=== PATIENT | female | born 1950 | race Caucasian/White ===

== ENCOUNTER 2018-05-23 08:03 | Outpatient (CLI) | payer MEDICARE, OTHER ==
[~2018-05-23] VITALS: Ht 170.2 cm; Wt 112.7 kg
--- NOTE | ~2018-05-23 | HEMODYNAMI ---
PATIENT:ESPINOZA RAMSEY MEDICAL RECORD: [id number] : 48 LOCATION:DLOS ADMISSION DATE: 05/23/18 Generatedon:05/23/201813:05 Patient name: ESPINOZA RAMSEY Patient #: [id number] SSN: : 1950 Date of study: 05/23/2018 Page: Of Hemodynamic Procedure Report Patient Data Patient Demographics Procedure consent was obtained First Name: ESPINOZA Gender: Female Last Name: BRAULIO : 1950 [facility] Initial: GREGORIO Age: 67 year(s) Patient #: [id number] Race: Unknown Additional ID: [id number] Contact details Address: [address] [place] [address] State: [place] City: [place] Zip code: [address] Past Medical History Allergies Allergen Reaction Date Comments Reported Other allergy 05/23/2018 ADHESIVE TAPE, LATEX, SULFA Admission Admission Data Admission Date: 05/23/2018 Admission Time: 8:03 Height (in.): 5.7 BSA: 0.37 (m2) Height (cm.): 14.48 BMI: 5366.61 (kg/m2) Weight (lbs.): 248 Weight (kg.): 112.49 Lab Results Lab Result Date: 05/23/2018 Lab Result Time: 0:00 Biochemistry Name Units Result Min Max BUN mg/dl 17 --(---*)-- 7 18 Creatinine mg/dl 0.9 --(-*--)-- 0.6 1.3 CBC Name Units Result Min Max Hemoglobin g/dl 13.8 --(*---)-- 13.5 17.5 Procedure Procedure Types Cath Procedure Diagnostic Procedure [facility] w/Coronaries PCI Procedure Coronary Stent Coronary Stent Initial Procedure Description Procedure Date Procedure Date: 05/23/2018 Procedure Start Time: 12:45 Procedure End Time: 13:04 Procedure Staff Name Function Marvin Layton MD Performing Physician Kandace Hodges RT Monitor Ashleigh Wilkins RT Scrub Jose Lorigan RN Nurse Procedure Data Cath Procedure Fluoroscopy Diagnostic fluoroscopy Total fluoroscopy Time: 6.1 time: 6.1 min min Diagnostic fluoroscopy Total fluoroscopy dose: 626 dose: 626 mGy mGy Contrast Material Contrast Material Type Amount (ml) Isovue 300 66 Entry Location Entry Primary Successful Side Size Upsize Upsize Entry Closure Bassett ccessful Closure Location (Fr) 1 (Fr) 2 (Fr) Remarks Device Remarks Radial Right 6 Fr Mechanical artery Short Compression Estimated blood loss: 10 ml Diagnostic catheters Device Type Used For End Catheter Placement DIAGNOSTIC [place] 110cm 5 LV Angiography Fr catheter ([id number]) DIAGNOSTIC [place] 110cm 5 Left Coronary Fr catheter ([id number]) Angiography DIAGNOSTIC [place] 110cm 5 Right Coronary Fr catheter ([id number]) Angiography Procedure Complications No complications Procedure Medications Medication Administration Route Dosage 0.9% NaCl I.V. 100 ml/hr Oxygen etCO2 Nasal cannula 2 l/min Heparin Flush Bag added to field 2 bags (1000units/500ml NS) Lidocaine 2% added to field 20 Radial Cocktail added to field 1 syringe (Verapomil 2mg/Nitro 400mcg/Heparin 1500units) Versed I.V. 2 mg Fentanyl I.V. 100 mcg Radial Cocktail I.A. 1 syringe (Verapomil 2mg/Nitro 400mcg/Heparin 1500units) Heparin Bolus I.V. 4000 units Hemodynamics Rest BSA: 0.37 (m2) HGB: 13.8 (g/dl) O2 Consumption: Estimated: 33.98 (ml/min) O2 Con sumption indexed: Estimated:91.84 (ml/min/m) Heart Rate: 68 (bpm) Snapshots Pre Cath Intra NCS Post Cath Vital Signs Time Heart Resp SPO2 etCO2 NIBP (mmHg) Rhythm Pain Sedation Rate (ipm) (%) (mmHg) Status Level (bpm) 12:32:14 69 27 96 0 158/101(124) A-Fib 0 (11) 10(A) , No pain 12:37:05 62 14 96 0 134/87(111) A-Fib 0 (11) 10(A) , No pain 12:41:54 62 12 94 19.5 136/87(119) A-Fib 0 (11) 10(A) , No pain 12:47:28 72 26 97 17.9 135/85(125) A-Fib 0 (11) 10(A) , No pain 12:52:21 67 11 94 20.2 143/68(106) A-Fib 0 (11) 10(A) , No pain 12:57:09 66 13 94 27.7 145/77(132) A-Fib 0 (11) 9(A) , No pain 13:01:56 80 14 95 35.9 139/95(115) A-Fib 0 (11) 9(A) , No pain Medications Time Medication Route Dose Verified Delivered Reason Not es Effectiveness by by 12:35:05 0.9% NaCl I.V. 100 Jose Jose Per physician ml/hr Deon Chavarria RN RN 12:35:16 Oxygen etCO2 2 l/min Jose Jose Per physician Nasal Deon Chavarria cannula RN RN 12:35:28 Heparin Flush added 2 bags Jose Jose used for Bag to Deon Chavarria procedure (1000units/500ml field ABURTO RN NS) 12:35:42 Lidocaine 2% added 20ml Jose Jose for local to vial Deon Chavarria anesthetic field ABURTO RN 12:36:01 Radial Cocktail added 1 Jose Jose used for (Verapomil to syringe Lorigan Malloryigan procedure 2mg/Nitro field ABURTO RN 400mcg/Heparin 1500units) 12:45:26 Versed I.V. 2 mg Jose Jose for sedation Deon Chavarria RN RN 12:45:34 Fentanyl I.V. 100 mcg Jose Jose for sedation Deon Chavarria RN RN 12:47:28 Radial Cocktail I.A. 1 Jose Marvin for (Verapomil syringe Deon Layton MD vasodilation 2mg/Nitro RN 400mcg/Heparin 1500units) 12:54:52 Heparin Bolus I.V. 4000 Jose Jose for units Deon Chavarria anticoagulation RN cell operation supervisor Log Time Note 12:09:21 Signed procedure consent form obtained from patient. 12:09:40 H&P Date Dictated: 05/19/2018 Within 30 days and on chart., H&P Addendum completed by physician on day of procedure. (MUST COMPLETE FOR ALL OUTPATIENTS). 12:09:57 Patient allergic to Other allergyADHESIVE TAPE, LATEX, SULFA 12:11:41 Lab Result : BUN 17 mg/dl 12:11:41 Lab Result : Creatinine 0.9 mg/dl 12:11:41 Lab Result : Hemoglobin 13.8 g/dl 12:11:56 Patient Height : 5.7 inches 12:12:01 Patient Weight : 248 lbs 12:16:03 Time tracking: Regular hours (M-F 7:00 - 5:00) 12:16:10 Plan of Care:Hemodynamics will remain stable., Cardiac rhythm will remain stable., Comfort level will be maintained., Respiratory function will remain adequate., Patient/ family verbilizes understanding of procedure., Procedure tolerated without complication., Recovers from procedure without complications.. 12:16:31 Jose Chavarria RN sent for patient. Start room use. 12:31:03 Patient received from Pre/Post Procedure Room to CCL 1 Alert and oriented. Tansferred to table in Supine position. 12:31:04 Warm blankets applied, and kathleen hugger turned on for patient comfort. 12:31:05 Correct patient and procedure confirmed by team. 12:31:05 ECG and BP/O2 sat monitors applied to patient. 12:31:07 Pre-procedure instructions explained to patient. 12:31:07 Pre-op teaching completed and patient verbalized understanding. 12:31:10 Vital chart was started 12:31:14 Baseline sample Acquired. 12:31:21 Full Disclosure recording started 12:31:24 Family in waiting room. 12:31:29 Is the patient allergic to Iodine/contrast media? No. 12:31:34 Is patient on blood thinner?Yes 12:31:37 ACC The patient was administered the following blood thiners within the last 24 hours: ACCPlavix 12:32:00 Rhythm: atrial fibrillation 12:32:03 Patient diabetic? No. 12:32:15 Previous problem with sedation/anesthesia? No ? 12:32:16 Snore? Yes 12:32:17 Sleep apnea? No 12:32:18 Deviated septum? No 12:32:19 Opens mouth fully? Yes 12:32:20 Sticks out tongue? Yes 12:32:21 Airway obstruction? No ? 12:32:23 Dentures? No ? 12:32:28 Modified Humble's test Ulnar < 7 seconds 12:32:29 Patient pain scale 0/10 ?. 12:32:38 IV patent on arrival in left forearm with 0.9% NaCl at [facility]. 12:32:40 Lab results completed and on chart. 12:32:43 Right Radial & Right Groin area was prepped with chlora-prep and draped in sterile fashion 12:32:44 Alarms reviewed by R. N. 12:32:44 Sharps counted by scrub and verified by R.N. 12:32:46 Use device set Radial Dx or PCI 12:34:15 ACIST Syringe (34592) opened to sterile field. 12:34:16 Medline Cath Pack ([id number]) opened to sterile field. 12:34:16 Bag Decanter (2002S) opened to sterile field. 12:34:17 DIAGNOSTIC WIRE .035 260cm J wire (020901) opened to sterile field. 12:34:18 ACIST Hand Control (48530) opened to sterile field. 12:34:19 ACIST Manifold (22403) opened to sterile field. 12:34:19 Tegaderm 4 x 4 (1626W) opened to sterile field. 12:34:20 MBrace Wrist Support ([id number]) opened to sterile field. 12:34:22 SHEATH 6Fr Prelude Radial ([id number]) opened to sterile field. 12:35:05 0.9% NaCl 100 ml/hr I.V. was administered by Jose Chavarria RN; Per physician; 12:35:16 Oxygen 2 l/min etCO2 Nasal cannula was administered by Jose Chavarria RN; Per physician; 12:35:28 Heparin Flush Bag (1000units/500ml NS) 2 bags added to field was administered by Jose Chavarria RN; used for procedure; 12:35:42 Lidocaine 2% 20ml vial added to field was administered by Jose Chavarria RN; for local anesthetic; 12:36:01 Radial Cocktail (Verapomil 2mg/Nitro 400mcg/Heparin 1500units) 1 syringe added to field was administered by Jose Chavarria RN; used for procedure; 12:37:35 Zero performed for pressure channel P1 12:43:44 Final Timeout: patient, procedure, and site verified with staff and physician. All members of the team are in agreement. 12:43:47 Right Radial site verified by team. 12:43:50 Physical assessment completed. ASA score P 2 - A patient with mild systemic disease as per Marvin Layton MD. 12:43:53 Sedation plan: IV Moderate Sedation Medication:Versed, Fentanyl 12:45:26 Versed 2 mg I.V. was administered by Jose Chavarria RN; for sedation; 12:45:34 Fentanyl 100 mcg I.V. was administered by Jose Chavarria RN; for sedation; 12:45:44 Procedure started. 12:45:53 Local anesthetic to right radial artery with Lidocaine 2% by Marvin Layton MD.INITIAL ACCESS ONLY 12:46:29 A 6 Fr Short sheath was inserted into the Right Radial artery 12:47:25 A DIAGNOSTIC [place] 110cm 5 Fr catheter ([id number]) was advanced over the wire and used for LV Angiography. 12:47:28 Radial Cocktail (Verapomil 2mg/Nitro 400mcg/Heparin 1500units) 1 syringe I.A. was administered by Marvin Layton MD; for vasodilation; 12:48:12 GLIDE WIRE ANGLE 260cm (CG9118) opened to sterile field. 12:49:32 LV gram done using TANG 12:49:36 Injector settings: Ml/sec: 5, Volume: 15, 12:49:49 EF : 60 % 12:49:50 Catheter removed. 12:50:06 A DIAGNOSTIC [place] 110cm 5 Fr catheter (192111) was advanced over the wire and used for Left Coronary Angiography. 12:51:26 A DIAGNOSTIC [place] 110cm 5 Fr catheter ([id number]) was advanced over the wire and used for Right Coronary Angiography. 12:51:29 Catheter removed. 12:51:33 Use device set TAU PCI 12:51:35 INFLATOR Merit BasixCompak (FM5500) opened to sterile field. 12:51:38 CHOICE PT Extra Support 182cm wire ([id number]) opened to sterile field. 12:53:14 6 Fr EBU 3.0 guide catheter was inserted over the wire 12:53:27 GUIDE 6FR EBU 3.0 catheter ([id number]) opened to sterile field. 12:54:52 Heparin Bolus 4000 units I.V. was administered by Jose Chavarria RN; for anticoagulation; 12:55:26 Guide Catheter removed. unable to cannulate vessel. 12:55:40 GUIDE 6FR EBU 3.5 catheter ([id number]) opened to sterile field. 12:55:56 6 Fr EBU 3.5 guide catheter was inserted over the wire 12:57:08 CHOICE PT ES wire advanced. 12:58:42 Place stent Inflation Number: 1 A JUANA RX 3.5 x 15 stent ([id number]) was prepped and advanced across the Mid LAD. The stent was deployed at 13 ARSENIO for 0:08 (min:sec). 12:59:05 Stent catheter was removed intact over wire. 12:59:06 Wire removed. 12:59:06 Guide catheter removed. 12:59:14 Sheath removed intact; hemostasis achieved with Mechanical Compression to the Right Radial artery. 12:59:18 Procedure ended.(Physican Out) 12:59:52 Fluoroscopy time 06.10 minutes. 12:59:55 Fluoroscopy dose: 626 mGy 12:59:55 Flurop Dose total: 626 12:59:59 Contrast amount:Isovue 300 66ml. 13:00:00 Sharps counted by scrub and verified by R.N. 13:00:03 TR band inflated with 12cc of air. 13:00:04 Insertion/operative site no bleeding no hematoma. 13:00:10 Post right radial artery:stable, clean and dry 13:00:11 Post Procedure Pulses reassessed and unchanged 13:00:14 Post-procedure physical assessment completed. ASA score P 2 - A patient with mild systemic disease as per Marvin Layton MD. 13:00:16 Post procedure rhythm: unchanged. 13:00:20 Estimated blood loss: 10 ml 13:00:33 Post procedure instruction explained to patient.Patient verbalizes understanding. 13:00:34 Patient needs reinforcement of post procedure teaching. 13:01:11 Procedure Complication : No complications 13:01:13 See physician's report for complete and final results. 13:01:30 TR BAND Standard ([id number]) opened to sterile field. 13:01:53 Procedure type changed to Cath procedure, Diagnostic procedure, LHC, LHC w/Coronaries, PCI procedure, Coronary Stent, Coronary Stent Initial 13:02:50 Procedure and supply charges have been captured, reviewed, submitted and are correct. 13:03:52 Vital chart was stopped 13:03:53 Report given to Pre/Post Procedure Room. 13:04:01 Patient transfered to Pre/Post Procedure Room with Stretcher. 13:04:09 Procedure ended. 13:04:09 Full Disclosure recording stopped 13:04:13 End room use (Document Last) Intervention Summary Intervention Notes Time ActionType Lesion and Equipment Used Action# Pressure Duration Attributes 12:58:42 Place stent Mid LAD JUANA RX 3.5 x 1 13 00:08 15 stent ([id number]) Device Usage Item Name Manufacture Quantity Catalog Number Hospital Part Current Minimal Lot# / Charge Number Stock Stock Serial# Code ACIST Syringe Acist 1 [id number] [id number] [id number] 20 (44014) Medical Systems Inc Medline Cath Cardinal 1 [id number] 473967 00997 148436 5 Pack Health ([id number]) Bag Decanter Microtek 1 2001S 309030 85192 715967 5 (2001S) Medical Inc. DIAGNOSTIC WIRE St [place] 1 455443 855676 378741 407579 30 .035 260cm J wire (847966) ACIST Hand Acist 1 15117 529346 247794 542410 5 Control (10173) Medical Systems Inc ACIST Manifold Acist 1 63597 003063 793054 340992 5 (94338) Medical Systems Inc Tegaderm 4 x 4 3M 1 1626W 708843 925423 146610 5 (1626W) MBrace Wrist Advanced 1 140-0250-00 724457 43478 838013 5 Support Vascular ([id number]) Dynamics SHEATH 6Fr Merit 1 [id number] 743008 280095 130254 5 Prelude Radial Medical ([id number]) DIAGNOSTIC Terumo 1 40-9793 254904 333179 986897 5 [place] 110cm 5 Fr catheter (255954) GLIDE WIRE Terumo 1 OA5009 437148 758526 864490 5 ANGLE 260cm (LM8955) INFLATOR Merit Merit 1 VU8029 958780 157894 234687 15 [employer] JapanmnGroupCharger (LT0163) CHOICE PT Extra [place] 1 [id number] 070226 767998 113461 5 Support 182cm Scientific wire ([id number]) GUIDE 6FR EBU Medtronic 1 [id number] 196845 35030 934347 0 3.0 catheter ([id number]) GUIDE 6FR EBU Medtronic 1 AD2RNS68 031435 21855 849887 3 3.5 catheter (AI5TSE19) JUANA RX 3.5 x Medtronic 1 [id number] 011021 0302971 927272 5 [id number] 15 stent ([id number]) TR BAND Terumo 1 [id number] 733894 768375 302122 40 Standard ([id number]) Signature Audit Cisco Stage Time Signature Unsigned Intra-Procedure 05/23/2018 Kandace 1:05:37 PM Counts RT(R) Signatures Monitor : Kandace Signature : Counts RT Date : Time : [address] [address]
--- NOTE | ~2018-05-23 | OP ---
PATIENT NAME: ESPINOZA RAMSEY MEDICAL RECORD: [id number] :[birth year] LOCATION:D.CAT ADMISSION DATE: SURGEON: STACIE NEVAREZ MD DATE OF OPERATION: 05/23/2018 PROCEDURES: 1. PTCA stent LAD. 2. Left heart catheterization. 3. Selective coronary angiography. 4. Left ventriculogram. INDICATION: Angina and coronary artery disease. PROCEDURE IN DETAIL: After informed consent was obtained and after a detailed description of the risks, benefits as well as alternative therapies, the patient elected to proceed with angiogram and angioplasty. The right radial area was prepped and draped in normal sterile fashion. Right radial artery was cannulated via modified Seldinger technique with placement of 6-Martiniquais sheath. All catheters exchanged through this sheath. FINDINGS: Left ventriculogram was performed in standard 30-degree TANG view, reveals good cardiac wall motion throughout all segments. Overall ejection fraction estimated 60%. SELECTIVE CORONARY ANGIOGRAPHY: 1. Left main is with no significant angiographic disease. 2. Left anterior descending has 85% stenosis in the proximal vessel. 3. Left circumflex has moderate irregularities, but now flow-limiting stenosis. 4. Right coronary artery has moderate irregularities, but no flow-limiting stenosis. PTCA STENT OF THE LAD: The stent used is a 3.5 x 15 mm [place]. Result was 0% residual stenosis. OVERALL IMPRESSION: Successful percutaneous transluminal coronary angioplasty stent of the left anterior descending going from 85% initial stenosis to 0% residual. TRANSINT:[id number] Voice Confirmation ID: [id number] DOCUMENT ID: [id number] STACIE NEVAREZ MD at 2001 CC: [id number] DICTATION DATE: 05/23/18 1304 RESIDENTIAL SERVICE TECHNICIAN: 05/23/18 1309 DEP CLI 05/23/18 [place] [address]
[2018-05-23] MEDS ORDERED: LEVOTHYROXINE75 MCG PO (09:02)
[2018-05-23] MEDS ORDERED: TOPROL XL50 MG PO (09:02)
[2018-05-23] MEDS ORDERED: HYZAAR 50-12.51 TAB PO (09:03)
[2018-05-23] MEDS ORDERED: PLAVIX75 MG PO (09:03)
[2018-05-23 09:11] VITALS: BP 173/103; Ht 170.2 cm; Wt 112.7 kg
[2018-05-23 09:19] LABS: BASOPHILS 0.8 % (0-2); EOSINOPHILS 2.8 % (0-7); HEMATOCRIT 41.1 % (36.0-48.0); HEMOGLOBIN 13.8 g/dL (12-16); IMMATURE GRANULOCYTES 0.1 % (0-5); LYMPHOCYTES 29.2 % (15-50); MCH 31.9 pg (26.0-34.0); MCHC 33.6 g/dL (31.0-37.0); MCV 94.9 fL (80.0-100.0); MONOCYTES 6.2 % (2-11); NEUTROPHILS 60.9 % (40-80); PLATELET COUNT 233 10x3/uL (130-400); RBC 4.33 10x6/uL (4.00-5.40); RDW 12.8 % (11.5-14.5); WBC 7.8 10x3/uL (4.8-10.8)
[2018-05-23 09:53] LABS: ANION GAP 11.6 mmol/L (8-16); CALCIUM 9.5 mg/dL (8.5-10.1); CARBON DIOXIDE 26.8 mmol/L (21.0-32.0); CREATININE - SERUM 0.9 mg/dL (0.6-1.3); POTASSIUM - SERUM 3.4 mmol/L (3.5-5.1)
[2018-07-18] MEDS ORDERED: BETAPACE 80 MG80 MG PO (10:18)
[2018-07-18] MEDS ORDERED: XARELTO20 MG PO (10:18)
== END 2018-05-23 16:55 | disposition home or self-care (01) ==
LOC: D.CATH 08:03
PROVIDERS: Internal Medicine Interventional Cardiology
DX: I20.9 Angina pectoris, unspecified (principal); R06.02 Shortness of breath; I48.91 Unspecified atrial fibrillation; I10 Essential (primary) hypertension; R94.31 Abnormal electrocardiogram [ECG] [EKG]; Z01.812 Encounter for preprocedural laboratory examination
CPT/HCPCS: 93458; C9600

== ENCOUNTER → 2018-07-18 09:48 | Outpatient (CLI) | payer MEDICARE, OTHER ==
[~2018-07-18] VITALS: Ht 170.2 cm; Wt 113.6 kg
--- NOTE | ~2018-07-18 | OP ---
PATIENT NAME: ESPINOZA RAMSEY MEDICAL RECORD: [id number] :[birth year] LOCATION:D.CAT ADMISSION DATE: SURGEON: STACIE NEVAREZ MD DATE OF OPERATION: 07/18/2018 PROCEDURE: DC cardioversion. INDICATION: Atrial fibrillation. PROCEDURE IN DETAIL: IV conscious sedation was performed per anesthesia. Continuous heart rate, O2 saturation, blood pressure monitoring all undertaken, all of which remained stable. She received 1 shock restoring sinus rhythm. OVERALL IMPRESSION: Successful DC cardioversion from atrial fibrillation to sinus rhythm. TRANSINT:[id number] Voice Confirmation ID: [id number] DOCUMENT ID: [id number] STACIE NEVAREZ MD at 1806 CC: [id number] DICTATION DATE: 07/18/18 1349 MUSIC EDUCATION ADJUNCT PROFESSOR: 07/18/18 1411 DEP CLI 07/18/18 [id number] [place] [address]
--- NOTE | ~2018-07-18 | HEMODYNAMI ---
PATIENT:ESPINOZA RAMSEY MEDICAL RECORD: [id number] : [birth year] LOCATION:D.CAT ADMISSION DATE: 07/18/18 Generatedon:07/18/201813:50 Patient name: ESPINOZA RAMSEY Patient #: [id number] SSN: : 1950 Date of study: 07/18/2018 Page: Of Hemodynamic Procedure Report Patient Data Patient Demographics Procedure consent was obtained First Name: ESPINOZA Gender: Female Last Name: BRAULIO : 1950 [facility] Initial: GREGORIO Age: 67 year(s) Patient #: [id number] Race: Unknown Additional ID: [id number] Contact details [address]: [address] [place], [place] [address] State: [place] City: [place] Zip code: [address] Past Medical History Allergies Allergen Reaction Date Comments Reported Other allergy 05/23/2018 ADHESIVE TAPE, LATEX, SULFA Admission Admission Data Admission Date: 07/18/2018 Admission Time: 9:48 Procedure Procedure Types Cath Procedure Diagnostic Procedure Cardioversion External Procedure Description Procedure Date Procedure Date: 07/18/2018 Procedure Start Time: 13:41 Procedure Staff Name Function Marvin Layton MD Performing Physician Kandace Hodges RT Monitor Mohsen Sherwood RN Nurse Polly Almanza RT Web Pressman Chung Montanez RT Web Pressman Reggie Mendoza MD Additional personnel Procedure Medications Medication Administration Route Dosage Oxygen etCO2 Nasal cannula 2 l/min 0.9% NaCl I.V. 100 ml/hr Refer to Anesthesia Notes for Sedation Medications Hemodynamics Rest Heart Rate: 65 (bpm) Snapshots Pre Cath Intra NCS Post Cath Vital Signs Time Heart Resp SPO2 etCO2 NIBP (mmHg) Rhythm Pain Sedation Rate (ipm) (%) (mmHg) Status Level (bpm) 13:29:19 61 18 99 0 179/107(139) NSR 0 (11) 10(A) , No pain 13:33:54 55 14 99 0 166/104(139) NSR 0 (11) 10(A) , No pain 13:38:33 56 9 98 32.2 173/84(127) NSR 0 (11) 10(A) , No pain 13:43:07 69 10 100 20.2 149/81(100) NSR 0 (11) 10(A) , No pain 13:47:29 51 15 97 34.4 128/82(106) NSR 0 (11) 10(A) , No pain Medications Time Medication Route Dose Verified Delivered Reason Notes Effective ness by by 13:42:10 Oxygen etCO2 2 Marvin Connolly Per Nasal l/min Calin Sherwood RN physician cannula 13:42:31 0.9% NaCl I.V. 100 Marvin Connolly Per ml/hr Calin Sherwood RN physician 13:50:22 Refer to Marvin Connolly Per Anesthesia Calin Sherwood RN physician Notes for Sedation Medications Procedure Log Time Note 13:16:33 Time tracking: Regular hours (M-F 7:00 - 5:00) 13:16:37 Plan of Care:Hemodynamics will remain stable., Cardiac rhythm will remain stable., Comfort level will be maintained., Respiratory function will remain adequate., Patient/ family verbilizes understanding of procedure., Procedure tolerated without complication., Recovers from procedure without complications.. 13:16:51 Chung Montanez RT(R) sent for patient. Start room use. 13:21:36 Patient received from Pre/Post Procedure Room to CCL 3 Alert and oriented. Tansferred to table in Supine position. 13:21:37 Warm blankets applied, and kathleen hugger turned on for patient comfort. 13:21:37 Correct patient and procedure confirmed by team. 13:21:41 Signed procedure consent form obtained from patient. 13:21:41 ECG and BP/O2 sat monitors applied to patient. 13:21:42 Full Disclosure recording started 13:22:31 CALLED ANESTHESIA 13:22:46 H&P Date Dictated: 07/15/2018 Within 30 days and on chart., H&P Addendum completed by physician on day of procedure. (MUST COMPLETE FOR ALL OUTPATIENTS). 13:22:48 Pre-procedure instructions explained to patient. 13:22:48 Pre-op teaching completed and patient verbalized understanding. 13:22:52 Family in patients room. 13:22:53 Patient NPO since Midnight. 13:23:12 Is the patient allergic to Iodine/contrast media? No. 13:23:48 Is patient on blood thinner?Yes 13:23:50 ACC The patient was administered the following blood thiners within the last 24 hours: Xarelto 13:23:53 Patient diabetic? No. 13:24:22 Previous problem with sedation/anesthesia? No ? 13:24:26 Snore? Yes 13:24:27 Sleep apnea? No 13:24:29 Deviated septum? No 13:24:30 Opens mouth fully? Yes 13:24:31 Sticks out tongue? Yes 13:24:32 Airway obstruction? No ? 13:24:35 Dentures? No ? 13:24:39 Patient pain scale 0/10 ?. 13:24:46 IV patent on arrival in left forearm with 0.9% NaCl at [facility]. 13:24:49 Lab results completed and on chart. 13:25:12 Alarms reviewed by Elton Saab 13:25:22 Quick Combo opened to sterile field. 13:25:26 Quick combo pads placed on patients chest and back. 13:27:32 Baseline sample Acquired. 13:27:46 Rhythm: atrial fibrillation 13:27:49 Vital chart was started 13:28:28 Reggie Mendoza MD present and monitoring patient for TIVA. 13:39:56 Final Timeout: patient, procedure, and site verified with staff and physician. All members of the team are in agreement. 13:40:07 Sedation plan: TIVA Medication:Propofol 13:40:11 Physical assessment completed. ASA score P 2 - A patient with mild systemic disease as per Marvin Layton MD. 13:41:01 Procedure started. 13:42:10 Oxygen 2 l/min etCO2 Nasal cannula was administered by Mohsen Sherwood RN; Per physician; 13:42:31 0.9% NaCl 100 ml/hr I.V. was administered by Mohsen Sherwood RN; Per physician; 13:43:03 Defibrillator synced and charged to 275 Joules. 13:43:15 Shock delivered. 13:43:34 Patient cardioverted to sinus rhythm . 13:43:37 Procedure ended.(Physican Out) 13:45:00 Post procedure rhythm: sinus rhythm 13:45:02 Post procedure instruction explained to patient.Patient verbalizes understanding. 13:45:02 Patient needs reinforcement of post procedure teaching. 13:45:16 Procedure and supply charges have been captured, reviewed, submitted and are correct. 13:45:19 See physician's report for complete and final results. 13:50:09 Vital chart was stopped 13:50:10 Report given to Pre/Post Procedure Room. 13:50:13 Patient transfered to Pre/Post Procedure Room with Stretcher. 13:50:16 End room use (Document Last) 13:50:22 Refer to Anesthesia Notes for Sedation Medications was administered by Mohsen Sherwood RN; Per physician; Device Usage Item Manufacture Quantity Catalog Hospital Part Current Minimal Lot# / Name Number Charge Number Stock Stock Sin al# Code [employer]. 1 [id number] 5 Combo Signature Audit [place] Stage Time Signature Unsigned Intra-Procedure 07/18/2018 Kandace 1:50:36 PM Counts RT(R) Signatures Monitor : Kandace Signature : Counts RT Date : Time : [address] [place] [address]
[~2018-07-18 09:48] MED LIST: BETAPACE 80 MG80 MG PO; HYZAAR 50-12.51 TAB PO; LEVOTHYROXINE75 MCG PO; PLAVIX75 MG PO; TOPROL XL50 MG PO; XARELTO20 MG PO
[2018-07-18 10:29] VITALS: BP 132/80; Ht 170.2 cm; Wt 113.6 kg
[2018-07-18 10:55] LABS: BASOPHILS 0.4 % (0-2); EOSINOPHILS 2.5 % (0-7); HEMATOCRIT 40.1 % (36.0-48.0); HEMOGLOBIN 13.6 g/dL (12-16); IMMATURE GRANULOCYTES 0.3 % (0-5); LYMPHOCYTES 25.4 % (15-50); MCH 31.9 pg (26.0-34.0); MCHC 33.9 g/dL (31.0-37.0); MCV 93.9 fL (80.0-100.0); MEAN PLATELET VOLUME 9.8 fL (7.4-10.4); MONOCYTES 6.2 % (2-11); NEUTROPHILS 65.2 % (40-80); PLATELET COUNT 240 10x3/uL (130-400); RBC 4.27 10x6/uL (4.00-5.40); WBC 6.7 10x3/uL (4.8-10.8)
[2018-07-18 11:06] LABS: INR 1.24 (0.85-1.17); PROTIME 15.1 SECONDS (11.6-15.0)
[2018-07-18 11:11] LABS: ANION GAP 12.1 mmol/L (8-16); CALCIUM 8.8 mg/dL (8.5-10.1); CARBON DIOXIDE 27.6 mmol/L (21.0-32.0); POTASSIUM - SERUM 3.7 mmol/L (3.5-5.1)
== END | disposition home or self-care (01) ==
LOC: D.CATH 09:48
PROVIDERS: Internal Medicine Interventional Cardiology
DX: I48.91 Unspecified atrial fibrillation (principal); Z01.812 Encounter for preprocedural laboratory examination

== ENCOUNTER 2020-05-10 11:09 | Outpatient (CLI) | payer MEDICARE, OTHER ==
[~2020-05-10] VITALS: Ht 170.2 cm; Wt 122.5 kg
--- NOTE | ~2020-05-10 | OP ---
PATIENT NAME: FLORECITA RAMSEY MEDICAL RECORD: [id number] :48 LOCATION:D.CAT ADMISSION DATE: SURGEON: GARY RAMON MD DATE OF OPERATION: 05/10/2020 PROCEDURE: Cardioversion. INDICATION: Atrial fibrillation. PROCEDURE: After general sedation via TIVA via anesthesia, initial synchronized shock at 200 joules was successful in restoring normal sinus rhythm. Second shock was performed at 300 joules. This showed buddhism of normal sinus rhythm from atrial fibrillation. IMPRESSION: Successful Cardioversion on Florecita Ramsey. During the procedure, the patient was monitored continuously with pulse oximetry, telemetry and blood pressure monitoring. TRANSINT:[id number] Voice Confirmation ID: [id number] DOCUMENT ID: [id number] GARY RAMON MD CC: [id number] DICTATION DATE: 05/10/20 1350 PELT GRADER: 05/10/20 2354 DEP CLI 05/10/20 [place] [id number]
--- NOTE | ~2020-05-10 | HEMODYNAMI ---
PATIENT:ESPINOZA RAMSEY MEDICAL RECORD: [id number] : 48 LOCATION:[facility] ADMISSION DATE: 05/10/20 Generatedon:05/10/202013:52 Patient name: ESPINOZA RAMSEY Patient #: [id number] SSN: : 1950 Date of study: 05/10/2020 Page: Of Hemodynamic Procedure Report Patient Data Patient Demographics Procedure consent was obtained First Name: ESPINOZA Gender: Female Last Name: BRAULIO : 1950 [facility] Initial: GREGORIO Age: 69 year(s) Patient #: [id number] Race: Unknown Additional ID: [id number] Contact details [address]: [address] [place] [address] State: [place] City: [place] Zip code: [address] Past Medical History Allergies Allergen Reaction Date Comments Reported Other allergy 05/23/2018 ADHESIVE TAPE, LATEX, SULFA Admission Admission Data Admission Date: 05/10/2020 Admission Time: 11:09 Lab Results Lab Result Date: 05/10/2020 Lab Result Time: 0:00 Biochemistry Name Units Result Min Max BUN mg/dl 18 --(---*)-- 7 18 Creatinine mg/dl 1.1 --(--*-)-- 0.6 1.3 CBC Name Units Result Min Max Hematocrit % 40.9 -*(----)-- 42 54 Hemoglobin g/dl 13.5 --(*---)-- 13.5 17.5 Procedure Procedure Types Cath Procedure Diagnostic Procedure Cardioversion External SATISH Procedure Description Procedure Date Procedure Date: 05/10/2020 Procedure Start Time: 13:33 Procedure End Time: 13:48 Procedure Staff Name Function Ludwig Thomas MD Performing Physician Sridhar Solo Additional personnel Ashleigh Wilkins RT Monitor Amy Ramirez RN Nurse Ritu Rojas Genetic Supervisor Polly Almanza RT Monitor Procedure Data Cath Procedure Fluoroscopy Diagnostic fluoroscopy Total fluoroscopy Time: 0 time: 0 min min Diagnostic fluoroscopy Total fluoroscopy dose: 0 dose: 0 mGy mGy Estimated blood loss: 0 ml Procedure Complications No complications Procedure Medications Medication Administration Route Dosage Oxygen etCO2 Nasal cannula 3 l/min 0.9% NaCl I.V. 100 ml/hr Hurricaine Sebago P.O. 1 Sprays Refer to Anesthesia Notes for Sedation Medications Hemodynamics Rest HGB: 13.5 (g/dl) Heart Rate: 59 (bpm) Snapshots Pre Cath Intra NCS Post Cath Vital Signs Time Heart Resp SPO2 etCO2 NIBP (mmHg) Rhythm Pain Sedation Rate (ipm) (%) (mmHg) Status Level (bpm) 13:25:28 59 15 99 0 160/97(143) NSR 0 (11) 10(A) , No pain 13:29:49 60 8 99 0 166/97(141) NSR 0 (11) 10(A) , No pain 13:34:00 65 11 99 0 123/79(89) NSR 0 (11) 10(A) , No pain 13:38:12 64 17 94 0 136/80(115) NSR 0 (11) 10(A) , No pain 13:42:37 42 10 84 0 73/57(69) NSR 0 (11) 10(A) , No pain 13:47:36 47 30 95 0 Measuring NSR 0 (11) 10(A) , No pain 13:48:47 52 18 98 0 Disturbed NSR 0 (11) 10(A) , No pain 13:50:23 48 19 96 0 99/68(77) NSR 0 (11) 10(A) , No pain Medications Time Medication Route Dose Verified Delivered Reason Notes Effecti veness by by 13:23:23 Oxygen etCO2 3 l/min Amy Amy Per Nasal Ashley Ramirez, physician cannula RN RN 13:23:39 0.9% NaCl I.V. 100 Amy Amy Per ml/hr Ashley Ramirez, physician RN RN 13:23:57 Hurricaine P.O. 1Sprays Amy Amy Per Sebago Ashley Ramirez, physician RN RN 13:24:02 Refer to Amy Amy Anesthesia Ashley Ramirez, Notes for RN RN Sedation Medications Procedure Log Time Note 13:14:35 Informed consent obtained and on chart 13:15:00 Procedure Status Cardioversion, SATISH. 13:15:01 Time tracking: Regular hours (M-F 7:00 - 5:00) 13:15:04 Plan of Care:Hemodynamics will remain stable., Cardiac rhythm will remain stable., Comfort level will be maintained., Respiratory function will remain adequate., Patient/ family verbilizes understanding of procedure., Procedure tolerated without complication., Recovers from procedure without complications.. 13:15:12 Amy Ramirez RN sent for patient. Start room use. 13:15:55 H&P Date Dictated: 05/05/2020 Within 30 days and on chart., H&P Addendum completed by physician on day of procedure. (MUST COMPLETE FOR ALL OUTPATIENTS). 13:16:11 Sridhar Sool present and monitoring patient for TIVA. 13:17:42 Patient arrived from Pre/Post Procedure Room to [facility]. Patient remains on bed/stretcher for procedure. 13:19:21 Warm blankets applied, and kathleen hugger turned on for patient comfort. 13:19:22 Correct patient and procedure confirmed by team. 13:19:23 ECG and BP/O2 sat monitors applied to patient. 13:19:24 Pre-procedure instructions explained to patient. 13:19:25 Pre-op teaching completed and patient verbalized understanding. 13:19:26 Family in patients room. 13:19:27 Patient NPO since Midnight. 13:19:29 Is patient on blood thinner?No 13:21:02 Patient diabetic? No. 13:21:04 Previous problem with sedation/anesthesia? No ? 13:21:05 Snore? Yes 13:21:06 Sleep apnea? No 13:21:06 Deviated septum? No 13:21:07 Opens mouth fully? No 13:21:08 Sticks out tongue? Yes 13:21:09 Airway obstruction? No ? 13:21:11 Dentures? No ? 13:22:25 Lab Result : BUN 18 mg/dl 13:22:25 Lab Result : Creatinine 1.1 mg/dl 13:22:25 Lab Result : Hemoglobin 13.5 g/dl 13:22:25 Lab Result : Hematocrit 40.9 % 13:22:29 Lab results completed and on chart. 13:22:50 IV patent on arrival in right antecubital with 0.9% NaCl at [facility]. 13:23:00 Quick Combo opened to sterile field. 13:23:21 Vital chart was started 13:23:23 Oxygen 3 l/min etCO2 Nasal cannula was administered by Amy Ramirez RN; Per physician; Verbal order read back and verified. 13::24 Rhythm: atrial fibrillation 13:: Full Disclosure recording started 13:23:39 0.9% NaCl 100 ml/hr I.V. was administered by Amy Ramirez RN; Per physician; Verbal order read back and verified. 13::57 Hurricaine Sebago 1Sprays P.O. was administered by Amy Ramirez RN; Per physician; Verbal order read back and verified. 13:24:02 Refer to Anesthesia Notes for Sedation Medications was administered by Amy Ramirez RN; ; Verbal order read back and verified. 13:24:28 Baseline sample Acquired. 13:26:53 Alarms reviewed by Elton Saab 13:32:11 --------ALL STOP TIME OUT------ 13:32:12 Final Timeout: patient, procedure, and site verified with staff and physician. All members of the team are in agreement. 13:32:15 Physical assessment completed. ASA score P 2 - A patient with mild systemic disease as per Ludwig Thomas MD. 13:32:21 Sedation plan: TIVA Medication:Propofol 13:33:06 Procedure started. 13:33:44 SATISH 13:33:46 [facility] Carroter present for SATISH. 13:34:24 SATISH started. 13:40:36 SATISH completed. 13:40:42 ------Cardioversion------ 13:40:44 Quick combo pads placed on patients chest and back. 13:40:48 Defibrillator synced and charged to 200 Joules. 13:40:52 Shock delivered. 13:41:26 Defibrillator synced and charged to 300 Joules. 13:41:33 Shock delivered. 13:41:57 Patient cardioverted to sinus bradycardia. 13:42:22 Procedure ended.(Physican Out) 13:42:58 Fluoroscopy time 00.00 minutes. 13:42:59 Fluoroscopy dose: 0 mGy 13:42:59 Flurop Dose total: 0 13:43:01 Dose Area Product 0 mGy/cm. 13:43:07 Post-procedure physical assessment completed. ASA score P 2 - A patient with mild systemic disease as per Ludwig Thomas MD. 13:43:12 Post procedure rhythm: sinus bradycardia 13:43:16 Estimated blood loss: 0 ml 13:43:17 Post procedure instruction explained to patient.Patient verbalizes understanding. 13:43:17 Patient needs reinforcement of post procedure teaching. 13:45:51 Procedure and supply charges have been captured, reviewed, submitted and are correct. 13:47:58 Procedure Complication : No complications 13:48:01 Vital chart was stopped 13:48:20 SATISH Findings: SATISH w/ cardioversion: no left atrial clot noted (proceed with cardioversion) 13:48:22 Operative report dictated upon procedure completion. 13:48:22 See physician's report for complete and final results. 13:48:24 Report given to Pre/Post Procedure Room. 13:48:26 Procedure ended. 13:48:26 Full Disclosure recording stopped 13:48:33 End room use (Document Last) Device Usage Item Manufacture Quantity Catalog Hospital Part Current Minimal Lot# / Name Number Charge Number [facility] Code Moxsie 1 [id number] Combo Signature Audit [place] Stage Time Signature Unsigned Intra-Procedure 05/10/2020 Polly Almanza 1:51:57 PM RT(R) Intra-Procedure 05/10/2020 Ludwig Pro 1:52:28 PM Cesar BRAMBILA Signatures Performing Physician : Signature : Ludwig Thomas MD Date : Time : Monitor : Ashleigh Wilkins Signature : RT Date : Time : Nurse : Amy Ramirez, Signature : RN Date : Time : Monitor : Polly Dyeren RT Signature : Date : Time : [place] [address] [place] [address]
--- NOTE | ~2020-05-10 | TEE ---
PATIENT:ESPINOZA RAMSEY MEDICAL RECORD: [id number] LOCATION:D.[facility] AGE OF PATIENT: 69 ADMISSION DATE: 05/10/20 SEX: F REFERRING PHYSICIAN: INTERPRETING PHYSICIAN: GARY RAMON MD TRANSESOPHAGEAL ECHOCARDIOGRAM Date: 05/10/20 SATISH CHARGE Y INDICATIONS: CARDIOVERSION PREMEDICATIONS: PATIENT'S RESPONSE PROCEDURE DOPPLER MEASUREMENTS: LVIT LA PA RA LVOT RVOT Asc. Ao AV Gradient Peak AV Mean AV Area MV Gradient Peak MV Mean MV Area INTERPRETATION: Doppler: 2-D: COLOR FLOW DOPPLER NORMAL SALINE STUDY: MISCELLANOUS: DIAGNOSIS: PLAN: Oyster Worker:3 Dr. Matt Acoustical Material Worker: Mechelle RUIZ COMMENTS: PACS DATE OF SERVICE: 05/10/2020 Procedure: Transesophageal echocardiogram. DESCRIPTION OF PROCEDURE: After general sedation via TIVA via anesthesia, transesophageal Omniplane probe was placed in the distal esophagus and proximal stomach without difficulty. FINDINGS: LVH is present. LV internal dimension is normal. Wall motion is TRANSESOPHAGEAL ECHOCARDIOGRAM REPORT [id number] ESPINOZA RAMSEY I normal. EF greater than or equal to 55%. Aortic valve is tricuspid with good valve excursion. No AI is noted by color flow imaging. Left atrium appears normal. Left atrial appendage appears normal with good contractility via Doppler. Mitral valve appears normal with mild MR. Right-sided chambers were grossly normal. Mild TR. Incidental note is made of moderate band at the RV apex. Transesophageal Omniplane probe was turned posteriorly. This showed minimal atherosclerotic debris in the descending aorta. TRANSINT:[id number] Voice Confirmation ID: [id number] DOCUMENT ID: [id number] GARY RAMON MD CC: [id number] DICTATION DATE: 05/10/20 1349 OFFICE AUTOMATION CLERK: 05/11/20 0239 DEP CLI 05/10/20 [facility] [address] [place] [address]
[2020-05-10] MEDS ORDERED: LIPITOR20 MG PO (11:48)
[2020-05-10] MEDS ORDERED: VITAMIN D1000 UNIT PO (11:48)
[2020-05-10] MEDS ORDERED: TRIBENZOR 40-11 EAC1 PO (11:48)
[2020-05-10] MEDS ORDERED: HCTZ25 MG PO (11:49)
[2020-05-10 12:19] VITALS: BP 113/66; Ht 170.2 cm; Wt 122.5 kg
[2020-05-10 12:28] LABS: BASOPHILS 0.8 % (0-2); EOSINOPHILS 2.9 % (0-7); HEMATOCRIT 40.9 % (36.0-48.0); HEMOGLOBIN 13.5 g/dL (12-16); LYMPHOCYTES 28.3 % (15-50); MCH 32.4 pg (26.0-34.0); MCV 98.1 fL (80.0-100.0); MEAN PLATELET VOLUME 9.6 fL (7.4-10.4); MONOCYTES 6.4 % (2-11); NEUTROPHILS 61.6 % (40-80); PLATELET COUNT 251 10x3/uL (130-400); RBC 4.17 10x6/uL (4.00-5.40); RDW 12.5 % (11.5-14.5); WBC 6.5 10x3/uL (4.8-10.8)
[2020-05-10 12:42] LABS: INR 1.22 (0.85-1.17); PROTIME 15.3 SECONDS (11.6-15.0)
[2020-05-10 12:46] LABS: ANION GAP 9.2 mmol/L (8-16); CALCIUM 9.2 mg/dL (8.5-10.1); CARBON DIOXIDE 30.2 mmol/L (21.0-32.0); CREATININE - SERUM 1.1 mg/dL (0.6-1.3); POTASSIUM - SERUM 3.4 mmol/L (3.5-5.1)
--- NOTE | 2020-05-10 13:55 | NUR ---
PT RECEIVED BACK TO ROOM AFTER SATISH AND SUCCESSFUL CARDIOVERSION. PT AWAKE AND ALERT, DENIES PAIN OR DISCOMFORT. IV PATENT INFUSING VIA ORDERS. PT PLACED ON CARDIAC MONITORS AND O2 VIA NC AT 2L. HR SB RATE 49, BP 121/58, RR 11, SAT 98. SMALL RED AREA IN MIDDLE OF CHEST FROM SHOCK. PT DENIES NEEDS AT THIS TIME. AT BS, CALL LIGHT IN REACH
--- NOTE | 2020-05-10 14:15 | NUR ---
PT RESTING COMFORTABLY. HR SB 45, BP 106/57, RR 14. PT DENIES PAIN OR DISCOMFORT. DENIES ANY DIFFICULITY SWALLOWING. CALL LIGHT IN REACH
--- NOTE | 2020-05-10 14:35 | NUR ---
DISCHARGE INSTRUCTIONS REVIEWED W PT, SHE VERBALIZED UNDERSTANDING. IV REMOVED W CATH INTACT, MONITORS AND O2 REMOVED. PT UP TO DRESS FOR DISCHARGE. DRINKING PO FLUIDS W/O DIFFICULITY
--- NOTE | 2020-05-10 14:50 | NUR ---
PT AMBULATED TO BR, VOIDING W/O DIFFICULITY.
--- NOTE | 2020-05-10 15:00 | NUR ---
PT DISCHARGED TO PRIVATE VEHICLE VIA WC. SHE HAD ALL BELONGINGS AND DISCHARGE PAPERWORK IN HAND
== END 2020-05-10 15:00 | disposition home or self-care (01) ==
LOC: D.CATH 11:09
PROVIDERS: ATTEND Internal Medicine Interventional Cardiology
DX: I48.91 Unspecified atrial fibrillation (principal); I10 Essential (primary) hypertension; E78.5 Hyperlipidemia, unspecified; I25.10 Atherosclerotic heart disease of native coronary artery without angina pectoris

== ENCOUNTER 2020-06-13 07:31 | Outpatient (CLI) | payer MEDICARE, OTHER ==
[~2020-06-13] VITALS: Ht 167.6 cm; Wt 120.5 kg
--- NOTE | ~2020-06-13 | OP ---
PATIENT NAME: ESPINOZA RAMSEY MEDICAL RECORD: [id number] :48 LOCATION:D.CAT ADMISSION DATE: SURGEON: GARY RAMON MD DATE OF OPERATION: 06/13/2020 PROCEDURE: Left heart catheterization, selective coronary angiography, right radial approach. CATHETERS: Radial sheath, [place] catheter. The procedure was well tolerated. The patient was returned to the walls. Sheath was removed. TR band was placed. FINDINGS: Left ventriculography in 30-degree TANG view; normal wall motion. Normal systolic function. CORONARY ANATOMY: LEFT MAIN: Left main is free of disease. LAD: Area of the previous stenting shows no evidence of restenosis. No progression of disease. CIRCUMFLEX: Left dominant system and large circumflex free of disease. RIGHT CORONARY ARTERY: Rudimentary, free of disease. IMPRESSION AND PLAN: Widely patent stent, no evidence of restenosis. At this point in time, we will lower beta blockade, use combination of metoprolol and sotalol, explained to her dyspnea, etc. Does remain in sinus rhythm. Further recommendations based on the above. TRANSINT:[id number] Voice Confirmation ID: [id number] DOCUMENT ID: [id number] GARY RAMON MD CC: [id number] DICTATION DATE: 06/13/20 1022 BIT BENDER: 06/13/20 1314 DEP CLI 06/13/20 [place] [id number] [place] [address]
--- NOTE | ~2020-06-13 | HEMODYNAMI ---
PATIENT:ESPINOZA RAMSEY MEDICAL RECORD: [id number] : 48 LOCATION:[facility] ADMISSION DATE: 06/13/20 Generatedon:06/13/202010:17 Patient name: ESPINOZA RAMSEY Patient #: [id number] SSN: [id number] : 1950 Date of study: 06/13/2020 Page: Of Hemodynamic Procedure Report Patient Data Patient Demographics Procedure consent was obtained First Name: ESPINOZA Gender: Female Last Name: BRAULIO : 1950 [facility] Initial: GREGORIO Age: 69 year(s) Patient #: [id number] Race: SSN: [id number] Additional ID: [id number] Contact details Address: [address] [place], [place] [address] State: [place] City: [place] Zip code: [address] Past Medical History Allergies Allergen Reaction Date Comments Reported Other allergy 05/23/2018 ADHESIVE TAPE, LATEX, SULFA Other allergy 06/13/2020 SULFA, ADHESIVE, BENADRYL, LATEX Admission Admission Data Admission Date: 06/13/2020 Admission Time: 7:31 Arrival Date: 06/13/2020 Arrival Time: 0:00 Admit Source: Other Insurance Payor: Medicare HIC #: [id number] Height (in.): 66 BSA: 2.26 (m2) Height (cm.): 167.64 BMI: 42.89 (kg/m2) Weight (lbs.): 265.75 Weight (kg.): 120.54 Lab Results Lab Result Date: 06/13/2020 Lab Result Time: 0:00 Biochemistry Name Units Result Min Max BUN mg/dl 21 --(----)-* 7 18 Creatinine mg/dl 1 --(--*-)-- 0.6 1.3 eGFR ml/min 58 *-(----)-- 90 120 NONAFRICAN CBC Name Units Result Min Max Hematocrit % 40 -*(----)-- 42 54 Hemoglobin g/dl 13.2 -*(----)-- 13.5 17.5 Procedure Procedure Types Cath Procedure Diagnostic Procedure [facility] w/Coronaries Sedation Charges Moderate Sedation up to 15 minutes Procedure Description Procedure Date Procedure Date: 06/13/2020 Procedure Start Time: 10:07 Procedure End Time: 10:16 Procedure Staff Name Function Ludwig Thomas MD Performing Physician So Palacios RT Monitor Polly Almanza RT Scrub Geri Pulido RN Nurse Procedure Data Cath Procedure Fluoroscopy Diagnostic fluoroscopy Total fluoroscopy Time: 3 time: 3 min min Diagnostic fluoroscopy Total fluoroscopy dose: 559 dose: 559 mGy mGy Contrast Material Contrast Material Type Amount (ml) Isovue 370 51 Entry Location Entry Primary Successful Side Size Upsize Upsize Entry Closure Bassett ccessful Closure Location (Fr) 1 (Fr) 2 (Fr) Remarks Device Remarks Radial Right 6 Fr Mechanical artery Short Compression Estimated blood loss: 5 ml Diagnostic catheters Device Type Used For End Catheter Placement DIAGNOSTIC [place] 110cm 5 Procedure Fr catheter ([id number]) Procedure Complications No complications Procedure Medications Medication Administration Route Dosage Oxygen etCO2 Nasal cannula 2 l/min Lidocaine 2% added to field 20 Heparin Flush Bag added to field 2 bags (1000units/500ml NS) 0.9% NaCl I.V. 100 ml/hr Versed I.V. 1 mg Fentanyl I.V. 50 mcg Versed I.V. 1 mg Fentanyl I.V. 50 mcg Versed I.V. 1 mg Hemodynamics Rest BSA: 2.26 (m2) HGB: 13.2 (g/dl) O2 Consumption: Estimated: 188.9 (ml/min) O2 Con sumption indexed: Estimated:83.58 (ml/min/m) Heart Rate: 47 (bpm) Pressure Samples Time Site Value (mmHg) Purpose Heart Use Rate(bpm) 10:10 LV 16/-96,-4 Snapshot 46 Snapshots Pre Cath Intra NCS Post Cath Vital Signs Time Heart Resp SPO2 etCO2 NIBP (mmHg) Rhythm Pain Sedation Rate (ipm) (%) (mmHg) Status Level (bpm) 9:49:39 47 17 98 0 197/98(106) SB 0 (11) 10(A) , No pain 9:54:00 47 14 99 36.7 192/102(158) SB 0 (11) 10(A) , No pain 9:58:27 47 14 96 37.4 166/91(158) SB 0 (11) 10(A) , No pain 10:03:50 44 13 94 0 164/99(134) SB 0 (11) 10(A) , No pain 10:08:06 42 14 95 32.2 158/86(127) SB 0 (11) 9(A) , No pain 10:12:20 46 13 98 36.7 162/86(127) SB 0 (11) 10(A) , No pain 10:16:36 46 11 95 10.5 153/83(118) SB 0 (11) 10(A) , No pain Medications Time Medication Route Dose Verified Delivered Reason Notes Eff ectiveness by by 9:52:04 Oxygen etCO2 2 Ludwig Buffie used for Nasal l/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 100 Ludwig Buffie Per ml/hr [facility] RN physician 10:00:41 Versed I.V. 1 mg Ludwig Buffie for [place] Pulido RN sedation 10:00:47 Fentanyl I.V. 50 Ludwig Buffie for [facility] RN sedation 10:05:55 Versed I.V. 1 mg Ludwig [facility] sed[facility] 10:05:59 Fentanyl I.V. 50 Ludwig Buffie for [facility] RN sedation 10:12:19 Versed I.V. 1 mg Ludwig Buffie for [facility] RN sedation Procedure Log Time Note 9:18:08 Diagnostic Cath Status : Elective 9:18:27 Time tracking: Regular hours (M-F 7:00 - 5:00) 9:18:33 Plan of Care:Hemodynamics will remain stable., Cardiac rhythm will remain stable., Comfort level will be maintained., Respiratory function will remain adequate., Patient/ family verbilizes understanding of procedure., Procedure tolerated without complication., Recovers from procedure without complications.. 9:21:26 Polly Almanza RT(R) sent for patient. Start room use. 9:24:13 Arrival Date: 06/13/2020 12:00:00 AM 9:24:13 Admit Source: Other 9:25:44 Patient Height : 66 inches 9:25:51 Patient Weight : 265.75 lbs 9:26:02 Insurance Payor : Medicare 9:26:34 Lab Result : Hemoglobin 13.2 g/dl 9:26:34 Lab Result : Hematocrit 40 % 9:26:46 Informed consent obtained and on chart 9:37:03 Patient allergic to Other allergySULFA, ADHESIVE, BENADRYL, LATEX 9:37:26 Lab Result : eGFR NONAFRICAN 58 ml/min 9:37:26 Lab Result : Creatinine 1 mg/dl 9:37: Lab Result : BUN 21 mg/dl 9:37:52 Procedure Status Elective Heart Cath (OP). 9:38:23 Patient received from Pre/Post Procedure Room to CCL 1 Alert and oriented. Tansferred to table in Supine position. 9:38:25 Warm blankets applied, and kathleen hugger turned on for patient comfort. 9:38:26 ECG and BP/O2 sat monitors applied to patient. 9:38:26 Correct patient and procedure confirmed by team. 9:38:37 H&P Date Dictated: 06/01/2020 Within 30 days and on chart.. 9:38:38 Pre-procedure instructions explained to patient. 9:38:39 Pre-op teaching completed and patient verbalized understanding. 9:38:40 Family in waiting room. 9:38:41 Patient NPO since Midnight. 9:38:43 Is the patient allergic to Iodine/contrast media? No. 9:38:54 Pre procedure: right dorsailis pedis pulse 2+ Normal; easily identifiable; not easily obliterated 9:38:56 Modified Humble's test Ulnar < 7 seconds 9:39:02 IV patent on arrival in left antecubital with 0.9% NaCl at KVO. 9:39:05 Lab results completed and on chart. 9:39:08 Stress Test: no; N/A ? 9:39:10 Alarms reviewed by R. N. 9:39:10 Sharps counted by scrub and verified by R.N. 9:47:06 Risk of Mortality: 0.1 9:47:08 Risk of blood transfusion: 0.1 9:47:10 Risk of DEANDRE: 0.6 9:47:14 Right Radial & Right Groin area was prepped with chlora-prep and draped in sterile fashion 9:47:21 Patient pain scale 0/10 ?. 9:47:25 Vital chart was started 9:47:26 Full Disclosure recording started 9:47:32 Was the patient premedicated? No 9:47:34 Is patient on blood thinner?Yes 9:47:38 ACC The patient was administered the following blood thiners within the last 24 hours: Eliquis 9:47:40 Patient diabetic? No. 9:47:42 If diabetic: On Metformin? N/A 9:47:44 Patient not . Patient is over age 55. 9:47:45 ----Pre-sedation anethsthesia assessment.---- 9:47:48 Previous problem with sedation/anesthesia? No ? 9:52:04 Oxygen 2 l/min etCO2 Nasal cannula was administered by Geri Pulido RN; used for procedure; Verbal order read back and verified. 9:52:26 Lidocaine 2% 20ml vial added to field was administered by Ludwig Thomas MD; for local anesthetic; Verbal order read back and verified. 9:52:34 Heparin Flush Bag (1000units/500ml NS) 2 bags added to field was administered by Ludwig Thomas MD; used for procedure; Verbal order read back and verified. 9:52:43 Baseline sample Acquired. 9:52:46 0.9% NaCl 100 ml/hr I.V. was administered by Geri Pulido RN; Per physician; Verbal order read back and verified. 9:52:49 Rhythm: sinus bradycardia 9:52:53 Snore? Yes 9:52:55 Sleep apnea? Unknown 9:52:56 Deviated septum? No 9:52:57 Opens mouth fully? Yes 9:52:58 Sticks out tongue? Yes 9:53:01 Airway obstruction? No ? 9:53:03 Dentures? No ? 9:53:11 Use device set Radial Dx or PCI 9:53:13 ACIST Syringe (45970) opened to sterile field. 9:53:13 Medline Cath Pack ([id number]) opened to sterile field. 9:53:14 Bag Decanter (2002S) opened to sterile field. 9:53:14 ACIST Hand Control (00436) opened to sterile field. 9:53:15 ACIST Manifold (93137) opened to sterile field. 9:53:16 MBrace Wrist Support ([id number]) opened to sterile field. 9:53:19 EMERALD Guide Wire (538-543) opened to sterile field. 9:53:20 SHEATH 6FR RAIN (0614095) opened to sterile field. 9:53:37 --------ALL STOP TIME OUT------ 9:53:38 Final Timeout: patient, procedure, and site verified with staff and physician. All members of the team are in agreement. 9:53:43 Right Radial & Right Groin site verified by team. 9:53:46 Fire Safety Assessment: A--An alcohol-based skin anteseptic being used preoperatively., C--Open oxygen or nitrous oxide is being used., D--An ESU, laser, or fiber-optic light is being used. 9:53:49 Physical assessment completed. ASA score P 2 - A patient with mild systemic disease as per Ludwig Thomas MD. 9:53:52 3a) 45-59 Moderately reduced kidney function. 9:53:55 Maximum allowable contrast dose (3.7 X eGFR X 0.75)161 ml. 9:53:59 Sedation plan: IV Moderate Sedation Medication:Versed, Fentanyl 10:00:41 Versed 1 mg I.V. was administered by Geri Pulido RN; for sedation; Verbal order read back and verified. 10:00:47 Fentanyl 50 mcg I.V. was administered by Geri Pulido RN; for sedation; Verbal order read back and verified. 10:05:55 Versed 1 mg I.V. was administered by Geri Pulido RN; for sedation; Verbal order read back and verified. 10:05:59 Fentanyl 50 mcg I.V. was administered by Geri Pulido RN; for sedation; Verbal order read back and verified. 10:07:30 Procedure started. 10:07:35 Local anesthetic to right radial artery with Lidocaine 2% by Ludwig Thomas MD.INITIAL ACCESS ONLY 10:08:26 A 6 Fr Short sheath was inserted into the Right Radial artery 10:08:45 A DIAGNOSTIC [place] 110cm 5 Fr catheter ([id number]) was advanced over the wire and used for Procedure. 10:10:04 LV gram done using TANG 10:10:29 Injector settings: Ml/sec: 5, Volume: 15, 10:10:47 LV hemodynamics recorded. 10:11:04 EF : 55 % 10:11:16 LCA angiography performed. 10:11:21 Injector settings: Ml/sec: 3, Volume: 6, 10:12:19 Versed 1 mg I.V. was administered by Geri Pulido RN; for sedation; Verbal order read back and verified. 10:13:49 RCA angiography performed. 10:13:52 Injector settings: Ml/sec: 3, Volume: 6, 10:14:08 ACCDominant side:Left 10:14:15 Catheter removed. 10:14:19 ZEPHYR REGULAR TR BAND ([id number]) opened to sterile field. 10:14:32 Sheath removed intact; hemostasis achieved with Mechanical Compression to the Right Radial artery. 10:14:34 Procedure ended.(Physican Out) 10:14:53 Fluoroscopy time 03.00 minutes. 10:14:57 Fluoroscopy dose: 559 mGy 10:14:57 Flurop Dose total: 559 10:15:02 Dose Area Product 11162 mGy/cm. 10:15:06 Contrast amount:Isovue 370 51ml. 10:15:09 Maximum allowable dose exceeded? No. 10:15:10 Sharps counted by scrub and verified by R.N. 10:15:12 Minford band inflated with 10cc of air. 10:15:14 Post Procedure Pulses reassessed and unchanged 10:15:16 Post procedure: right dorsailis pedis pulse 2+ Normal; easily identifiable; not easily obliterated. 10:15:19 Post-procedure physical assessment completed. ASA score P 2 - A patient with mild systemic disease as per Ludwig Thomas MD. 10:15:22 Post procedure rhythm: unchanged. 10:15:25 Estimated blood loss: 5 ml 10:15:27 Post procedure instruction explained to patient.Patient verbalizes understanding. 10:15:28 Patient needs reinforcement of post procedure teaching. 10:15:41 Procedure type changed to Cath procedure, Diagnostic procedure, LHC, LHC w/Coronaries, Sedation Charges, Moderate Sedation up to 15 minutes 10:16:08 Procedure and supply charges have been captured, reviewed, submitted and are correct. 10:16:11 Procedure Complication : No complications 10:16:13 Vital chart was stopped 10:16:15 [facility] Findings: mild to moderate CAD (<70%) 10:16:16 Operative report dictated upon procedure completion. 10:16:17 See physician's report for complete and final results. 10:16:19 Report given to Pre/Post Procedure Room. 10:16:22 Patient transfered to Pre/Post Procedure Room with Stretcher. 10:16:39 Procedure ended. 10:16:39 Full Disclosure recording stopped 10:16:47 End room use (Document Last) 10:17:07 End room use (Document Last) 10:17:25 End room use (Document Last) Device Usage Item Name Manufacture Quantity Catalog Hospital Part Current Minima l Lot# / Number Charge Number Stock Stock Serial# Code ACIST Acist 1 92781 [id number] 20 Syringe Medical (58958) Systems Inc Medline Medline 1 [id number] 86930 [id number] 5 Cath Pack ([id number]) Bag Microtek 1 520684 74319 [id number] 5 Decanter Medical Inc. () ACIST Hand Acist 1 87954 692633 [id number] [id number] 5 Control Medical (52009) Systems Inc ACIST Acist 1 66268 700760 169064 184581 5 Manifold Medical (28325) Systems Inc MBrace Advanced 1 [id number] 463238 25705 946780 5 Wrist Vascular Support Dynamics ([id number]) EMERALD Cardinal 1 502-455 223133 535566 167275 5 Guide Wire Health (502-455) SHEATH 6FR Cardinal 1 [id number] 417544 9041626 586509 5 [facility] (1939220) DIAGNOSTIC Terumo 1 40-1163 258374 770195 854410 5 [place] 110cm 5 Fr catheter (045237) ZEPHYR Cardinal 1 210329 244867 [id number] 074689 5 REGULAR TR Health BAND (506202) Signature Audit [place] Stage Time Signature Unsigned Intra-Procedure 06/13/2020 So Palacios 10:17:07 AM RT(R) Intra-Procedure 06/13/2020 Geri Pulido RN 10:17:25 AM Intra-Procedure 06/13/2020 Ludwig Pro 10:17:45 AM Cesar BRAMBILA [facility] [address] [place] [address]
[~2020-06-13 07:31] MED LIST changes: +HCTZ25 MG PO; +LIPITOR20 MG PO; +TRIBENZOR 40-11 EAC1 PO; +VITAMIN D1000 UNIT PO
[2020-06-13] MEDS ORDERED: ELIQUIS5 MG PO (08:33)
[2020-06-13 08:41] VITALS: BP 175/82; Ht 167.6 cm; Wt 120.5 kg
[2020-06-13 09:02] LABS: BASOPHILS 0.7 % (0-2); EOSINOPHILS 3.6 % (0-7); HEMOGLOBIN 13.2 g/dL (12-16); IMMATURE GRANULOCYTES 0.1 % (0-5); MCH 31.9 pg (26.0-34.0); MCV 96.6 fL (80.0-100.0); MONOCYTES 7.7 % (2-11); NEUTROPHILS 55.9 % (40-80); PLATELET COUNT 230 10x3/uL (130-400); RBC 4.14 10x6/uL (4.00-5.40); RDW 12.6 % (11.5-14.5); WBC 6.7 10x3/uL (4.8-10.8)
[2020-06-13 09:25] LABS: ANION GAP 9.2 mmol/L (8-16); CALCIUM 9.1 mg/dL (8.5-10.1); CARBON DIOXIDE 30.1 mmol/L (21.0-32.0); LDL-HDL RATIO 1.7 ratio (1.5-3.5); POTASSIUM - SERUM 3.3 mmol/L (3.5-5.1)
--- NOTE | 2020-06-13 10:25 | NUR ---
PT REC'D TO ROOM 3 VIA STRETCHER FROM SCRAPER OPERATOR. MONITORS ESTAB. DAUGHTER AT BS. SEE DIRECTOR OF ACQUISITIONS, ALARMS ON AND C/L IN REACH.
--- NOTE | 2020-06-13 10:34 | NUR ---
PT C/O "MORE BEHIND MY EYES" - DR. RAMON NOTIFIED AND NEW ORDER REC'D.
--- NOTE | 2020-06-13 10:40 | NUR ---
R WRIST SITE C/D/I, NO S/S BLEEDING OR HEMATAMA. PT WITH C/O MORE - SEE EMAR.
--- NOTE | 2020-06-13 10:43 | NUR ---
ADMIN NORCO TAB PER MD ORDER, VSS. PT DENIES OTHER NEEDS. R WRIST SITE C/D/I, NO S/S BLEEDING OR HEMATOMA. C/L IN REACH.
--- NOTE | 2020-06-13 11:10 | NUR ---
R WRIST SITE C/D/I, NO S/S BLEEDING OR SWELLING. PT REPORTS "MORE BETTER", RATES 4/10. ALARMS ON AND C/L IN REACH.
--- NOTE | 2020-06-13 11:30 | NUR ---
2CC AIR REMOVED FROM Z BAND, NO S/S BLEEDING OR HEMATOMA. R ARM/HAND WARM WITH PALP PULSES. VSS. C/L IN REACH.
--- NOTE | 2020-06-13 11:30 | NUR ---
5cc AIR TOTAL REMOVED FROM Z BAND, NO S/S BLEEDING OR SWELLING. VSS.
--- NOTE | 2020-06-13 11:45 | NUR ---
ALL AIR (10CC TOTAL) REMOVED FROM ZBAND, NO S/S BLEEDING OR HEMATOMA. R ARM/HAND WARM WITH PALP PULSES AND BRISK CAP REFILL. VSS. DAUGHTER AT BS. PT REFUSED SANDWICH AT THIS TIME. C/L IN REACH.
--- NOTE | 2020-06-13 12:05 | NUR ---
R WRIST SITE C/D/I. PIV D/C'D INTACT, DSG APPLIED. R Z BAND OFF - NO S/S BLEEDING OR SWELLING - DSG APPLIED. PT ALLOWED UP TO GET DRESSED AND GO TO BR INDEPENDENTLY. DAUGHTER ASSISTING.
--- NOTE | 2020-06-13 12:15 | NUR ---
DR. BRITO RE: ORDER CLARIFICATION FOR ELIQUIS
--- NOTE | 2020-06-13 12:21 | NUR ---
DR RAMON RETURNED PAGE - ORDER REC'D TO STOP ELIQUIS AND RESUME 81MG ASPIRIN DAILY. - DISCHARGE HOME MEDICATIONS CLARIFIED IN ORDERS.
[2020-06-13] MEDS ORDERED: ASPIRIN81 MG PO (12:27)
[2020-06-13] MEDS ORDERED: BAYER CHEWABLE81 MG PO (12:35)
--- NOTE | 2020-06-13 12:35 | NUR ---
ALL DISCHARGE INSTRUCTIONS REVIEWED WITH DAUGHTER AND PT - INCLUDING CHANGES TO HOME MEDS, RESTRICTIONS AND F/U APPT. - UNDERSTANDING VERBALIZED. PT DISCHARGED VIA WC - PT HAS ALL PAPERWORK AND BELONGINGS.
== END 2020-06-13 12:35 | disposition home or self-care (01) ==
LOC: D.CATH 07:31
PROVIDERS: ATTEND Internal Medicine Interventional Cardiology
DX: I25.10 Atherosclerotic heart disease of native coronary artery without angina pectoris (principal); I48.91 Unspecified atrial fibrillation; I10 Essential (primary) hypertension; R06.09 Other forms of dyspnea

== ENCOUNTER → 2021-03-28 11:32 | Outpatient (CLI) | payer MEDICARE, OTHER ==
[2020-06-13 08:41] VITALS: BMI 42.9
[~2021-03-28 11:32] MED LIST changes: +ASPIRIN81 MG PO; +BAYER CHEWABLE81 MG PO; +ELIQUIS5 MG PO
== END | disposition home or self-care (01) ==
LOC: D.LAB 11:32
PROVIDERS: ATTEND Nurse Practitioner
DX: Z11.52 Encounter for screening for COVID-19 (principal)

== ENCOUNTER → 2021-03-31 10:10 | Outpatient (CLI) | payer MEDICARE, OTHER ==
[2020-06-13 08:41] VITALS: BMI 42.9
== END | disposition home or self-care (01) ==
LOC: D.RT 10:00
PROVIDERS: ATTEND Nurse Practitioner
DX: R13.10 Dysphagia, unspecified (principal); R06.2 Wheezing